=== PATIENT | male | born 1940 | race Caucasian/White ===

== ENCOUNTER 2020-03-13 19:03 | Emergency (ER) | payer OTHER, MEDICARE, MEDICAID ==
[~2020-03-13] VITALS: Ht 180.3 cm; Wt 100.0 kg
[~2020-03-13 19:03] MED LIST: ALBU6.7H9 INH; AMIO200T61 PO; DILT120T3 PO; FURO-150 PO; INSU500I SQ; LEVO75TA7 PO; METF1000 PO; METO100T7 PO; POTA10CA44 PO; RIVA15TA PO; SACU1TAB7 PO
[2020-03-13 19:26] LABS: BASOPHILS # (AUTO) 0.1 X10'3 (0-0.2); BASOPHILS % (AUTO) 0.6 % (0-1); EOSINOPHILS # (AUTO) 0.1 X10'3 (0-0.9); EOSINOPHILS % (AUTO) 1.1 % (0-6); HEMATOCRIT 47.6 % (42.0-52.0); HEMOGLOBIN 15.9 g/dl (14.0-17.9); LYMPHOCYTES # (AUTO) 1.5 X10'3 (1.1-4.8); LYMPHOCYTES % (AUTO) 17.2 % (21-51); MEAN CORPUSCULAR HEMOGLOBIN 30.1 PG (27.0-31.0); MEAN CORPUSCULAR HGB CONC 33.4 g/dL (33.0-36.5); MEAN CORPUSCULAR VOLUME 90.2 FL (78-98); MONOCYTES # (AUTO) 0.7 X10'3 (0-0.9); MONOCYTES % (AUTO) 8.2 % (2-12); NEUTROPHILS # (AUTO) 6.4 X10'3 (1.8-7.7); NEUTROPHILS % (AUTO) 72.9 % (42-75); PLATELET COUNT 135 X10'3 (140-440); RED BLOOD COUNT 5.27 X10'6 (4.70-6.10); RED CELL DISTRIBUTION WIDTH 13.9 % (11.5-14.5); WHITE BLOOD COUNT 8.8 X10'3 (4.5-11.0)
[2020-03-13 19:44] LABS: ALANINE AMINOTRANSFERASE 22 U/L (12-78); ALBUMIN 3.4 G/DL (3.4-5.0); ALBUMIN/GLOBULIN RATIO 0.9 (1.1-1.5); ALKALINE PHOSPHATASE 64 IU/L (46-116); ANION GAP 11 (8-16); ASPARTATE AMINO TRANSFERASE 17 U/L (10-37); BILIRUBIN,TOTAL 0.5 MG/DL (0.1-1.0); BLOOD UREA NITROGEN 23 MG/DL (7-18); BUN/CREATININE RATIO 17.8 (5.4-32.0); CALCIUM 9.4 MG/DL (8.5-10.1); CHLORIDE 101 MMOL/L (99-107); CREATININE 1.29 MG/DL (0.60-1.10); GLUCOSE 224 MG/DL (70-104); POTASSIUM 4.2 MMOL/L (3.5-5.1); SODIUM 137 MMOL/L (135-145); TOTAL CARBON DIOXIDE 24.9 MMOL/L (24-32); eGFR 54 ML/MIN
[2020-03-13] MEDS ORDERED: diltiazem 5mg/ml 5ml inj. IV ONE ×2 (19:45→20:55)
[2020-03-13] MEDS ORDERED: diltiazem 30mg tablet PO ONE (19:45)
[2020-03-13 19:51] LABS: LIPASE < 50 U/L (73-393); TROPONIN I 0.05 NG/ML (0.0-0.05)
[2020-03-13] MEDS ORDERED: metoprolol tartrate 25mg tablet PO ONE (20:55)
[2020-03-13 21:00] LABS: CLARITY,URINE CLEAR (Clear); COLOR,URINE YELLOW (Yellow); GLUCOSE, URINE 250 mg/dl (Neg); KETONES,URINE NEGATIVE (Neg); LEUKOCYTE ESTERASE ,URINE NEGATIVE (Neg); NITRITES, URINE NEGATIVE (Neg); OCCULT BLOOD,URINE LARGE (Neg); PROTEIN,URINE 100 mg/dl (Neg); UROBILINOGEN,URINE 0.2 E.U/dL (0.2-1.0)
[2020-03-13 21:01] LABS: UA COLLECTION TYPE VOIDED
[2020-03-13 21:05] LABS: BACTERIA,URINE NONE SEEN /HPF (Neg); RBC,URINE 20-50 /HPF (0-2); SQUAMOUS EPITHELIAL CELL,UR FEW /LPF (FEW); WBC,URINE NONE SEEN /HPF (0-4)
[2020-03-13] MEDS ORDERED: metoprolol tartrate 1mg/ml inj IV ONE (21:30)
[2020-03-13] MEDS ORDERED: HYDR-4353 PO (21:50)
[2020-03-13 21:59] VITALS: BP 130/81
== END 2020-03-13 22:02 | disposition home or self-care (01) ==
LOC: ER 19:03
DX: N23 Unspecified renal colic (principal); R31.9 Hematuria, unspecified; I48.91 Unspecified atrial fibrillation; I25.10 Atherosclerotic heart disease of native coronary artery without angina pectoris; I10 Essential (primary) hypertension; I25.2 Old myocardial infarction; R06.89 Other abnormalities of breathing; Z90.49 Acquired absence of other specified parts of digestive tract; Z98.890 Other specified postprocedural states; Z88.5 Allergy status to narcotic agent; Z88.8 Allergy status to other drugs, medicaments and biological substances; Z79.4 Long term (current) use of insulin; Z79.899 Other long term (current) drug therapy
CPT/HCPCS: 36415; 71045; 74176; 80053; 81001; 83690; 83880; 84484; 85025; 93005; 96374; 96375; 96376; 99285; J3490

== ENCOUNTER 2021-02-28 12:19 | Inpatient (IN) | payer OTHER, MEDICARE, MEDICAID ==
[~2021-02-28] VITALS: Ht 182.9 cm; Wt 110.0 kg
[2021-02-28 12:52] LABS: BASOPHILS % (AUTO) 0.4 % (0-1); EOSINOPHILS # (AUTO) 0.2 X10'3 (0-0.9); EOSINOPHILS % (AUTO) 1.9 % (0-6); HEMATOCRIT 48.2 % (42.0-52.0); LYMPHOCYTES # (AUTO) 1.5 X10'3 (1.1-4.8); LYMPHOCYTES % (AUTO) 16.5 % (21-51); MEAN CORPUSCULAR HEMOGLOBIN 29.9 PG (27.0-31.0); MEAN CORPUSCULAR HGB CONC 33.3 g/dL (33.0-36.5); MEAN CORPUSCULAR VOLUME 89.8 FL (78-98); MEAN PLATELET VOLUME 9.9 FL (7.4-10.4); MONOCYTES # (AUTO) 0.7 X10'3 (0-0.9); MONOCYTES % (AUTO) 7.4 % (2-12); NEUTROPHILS # (AUTO) 6.6 X10'3 (1.8-7.7); NEUTROPHILS % (AUTO) 73.8 % (42-75); PLATELET COUNT 131 X10'3 (140-440); RED BLOOD COUNT 5.36 X10'6 (4.70-6.10); RED CELL DISTRIBUTION WIDTH 14.4 % (11.5-14.5); WHITE BLOOD COUNT 8.9 X10'3 (4.5-11.0)
[2021-02-28 13:32] LABS: ALANINE AMINOTRANSFERASE 15 U/L (12-78); ALBUMIN 3.3 G/DL (3.4-5.0); ALBUMIN/GLOBULIN RATIO 0.9 (1.1-1.5); ALKALINE PHOSPHATASE 46 IU/L (46-116); ANION GAP 12 (8-16); ASPARTATE AMINO TRANSFERASE 20 U/L (10-37); BILIRUBIN,TOTAL 0.7 MG/DL (0.1-1.0); BLOOD UREA NITROGEN 22 MG/DL (7-18); BUN/CREATININE RATIO 19.3 (5.4-32.0); CALCIUM 9.3 MG/DL (8.5-10.1); CHLORIDE 103 MMOL/L (99-107); CREATININE 1.14 MG/DL (0.60-1.10); GLUCOSE 160 MG/DL (70-104); POTASSIUM 3.9 MMOL/L (3.5-5.1); SODIUM 139 MMOL/L (135-145); TOTAL CARBON DIOXIDE 23.8 MMOL/L (24-32); TOTAL PROTEIN 7.1 G/DL (6.4-8.2); eGFR 62 ML/MIN
[2021-02-28] MEDS ORDERED: diltiazem 30mg tablet PO ONE (13:40)
[2021-02-28] MEDS ORDERED: diltiazem 5mg/ml 5ml inj. IV ONE (13:40)
[2021-02-28] MEDS ORDERED: magnesium 2GM in 50ml NS 50 ML IV ONE (13:45)
[2021-02-28] MEDS ORDERED: furosemide 10 MG/1 ML 10ml inj IV ONE (15:30)
[2021-02-28] MEDS ORDERED: METF-438 PO (17:10)
[2021-02-28] MEDS ORDERED: LAN0.125T PO (17:10)
[2021-02-28] MEDS ORDERED: METO200T49 PO (17:10)
[2021-02-28] MEDS ORDERED: SACU1TAB PO (17:10)
[2021-02-28] MEDS ORDERED: RIVA10TA PO (17:10)
[2021-02-28] MEDS ORDERED: FURO40TA4 PO (17:10)
[2021-02-28] MEDS ORDERED: ATOR40TA72 PO (17:10)
[2021-02-28] MEDS ORDERED: INSU100I25 SQ (17:10)
[2021-02-28] MEDS ORDERED: LEVO112T5 PO (17:10)
[2021-02-28] MEDS ORDERED: MESSAGE TO PHARMACY PO ONE (17:25)
[2021-02-28] MEDS ORDERED: mag hydrox/Alum hydrox/simeth 30ml oral suspension PO PRN (17:25)
[2021-02-28] MEDS ORDERED: ondansetron/PF 4mg/2ml inj IV PRN (17:25)
[2021-02-28] MEDS ORDERED: magnesium 4gm in 100ml NS 100 ML IV PRN (17:25)
[2021-02-28] MEDS ORDERED: diphenhydrAMINE 25mg capsule PO PRN (17:25)
[2021-02-28] MEDS ORDERED: magnesium Cl slow-release 64mg tablet PO PRN (17:25)
[2021-02-28] MEDS ORDERED: magnesium 2GM in 50ml NS 50 ML IV PRN (17:25)
[2021-02-28] MEDS ORDERED: bisacodyl 10mg suppository rectal RC PRN (17:25)
[2021-02-28] MEDS ORDERED: acetaminophen 650mg rectal suppository RC PRN (17:25)
[2021-02-28] MEDS ORDERED: dextrose 50%-water 50ml dispensing syringe IV PRN ×2 (17:25)
[2021-02-28] MEDS ORDERED: dextrose ORAL solution 15 GM/59 ML bottle PO PRN ×2 (17:25)
[2021-02-28] MEDS ORDERED: acetaminophen 325mg tablet PO PRN ×2 (17:25)
[2021-02-28] MEDS ORDERED: magnesium hydroxide 30ml (MOM) UD suspension PO PRN (17:25)
[2021-02-28] MEDS ORDERED: potassium CL 10mEq/100ml bag 100 ML IV PRN (17:25)
[2021-02-28] MEDS ORDERED: potassium Cl 20 mEq SR tablet PO PRN ×2 (17:25)
[2021-02-28] MEDS ORDERED: glucagon, human recombinant 1mg kit SUBCUT PRN (17:25)
[2021-02-28 18:00] LABS: HEMOGLOBIN A1C 8.7 % (4.5-6.2)
[2021-02-28 18:40] LABS: CLARITY,URINE CLEAR (Clear); COLOR,URINE YELLOW (Yellow); GLUCOSE, URINE NEGATIVE (Neg); KETONES,URINE NEGATIVE (Neg); LEUKOCYTE ESTERASE ,URINE NEGATIVE (Neg); NITRITES, URINE NEGATIVE (Neg); OCCULT BLOOD,URINE NEGATIVE (Neg); PH,URINE 6.5 (4.8-8.0); PROTEIN,URINE 100 mg/dl (Neg); UROBILINOGEN,URINE 0.2 E.U/dL (0.2-1.0)
[2021-02-28 18:42] LABS: UA COLLECTION TYPE URINAL
--- NOTE | 2021-02-28 18:44 | NUR ---
ASSISTING RN WITH PT CARE, DR LESTER AT BEDSIDE TO DISCUSS CODE STATUS, PT WISHES TO BE DNR AND TO "PASS PEACEFULLY", PT AGREED TO NO CHEST COMPRESSIONS OR INTUBATION
[2021-02-28 18:50] LABS: BACTERIA,URINE FEW /HPF (Neg); MUCUS STRANDS FEW /LPF (Neg); SQUAMOUS EPITHELIAL CELL,UR FEW /LPF (FEW)
[2021-02-28 18:51] LABS: CELLULAR CAST 0-4 /LPF (NEGATIVE)
[2021-02-28] MEDS ORDERED: FLU VACC QS2021-22(6MOS UP)/PF 60 MCG/0.5 ML SYRINGE IM ONE (19:00)
[2021-02-28] MEDS ORDERED: pneumococcal 23-VAL P-sac vacc 25 mcg/0.5ml vial IMVAC ONE (19:00)
[2021-02-28] MEDS ORDERED: heparin 25,000 UNIT/250ml bag 250 ML IV SCH (19:10)
[2021-02-28] MEDS ORDERED: heparin 10,000 units/1 ML INJ IV PRN (19:10)
[2021-02-28] MEDS ORDERED: heparin 10,000 units/1 ML INJ IV ONE ×2 (19:10→20:55)
[2021-02-28] MEDS ORDERED: iohexol 350MG/ML 100ml bottle IV ONE (19:16)
[2021-02-28] MEDS ORDERED: MESSAGE TO NURSING PO ONE (20:00)
[2021-02-28] MEDS: insulin glargine (Lantus) pen - multi-dose SQ SCH (21:00)
[2021-02-28] MEDS: furosemide 40mg/4ml inj IV SCH (21:22)
[2021-02-28] MEDS: CefTRIAXone/D5W-Rocephin 1gm 50 ML IV SCH (21:23)
[2021-02-28] MEDS: heparin 25,000 UNIT/250ml bag 250 ML IV SCH (21:35)
[2021-02-28] MEDS: normal saline 1000ml 1,000 ML IV SCH (21:44)
[2021-02-28] MEDS: K and/or MAG REPLACEMENT MC SCH (21:46)
[2021-02-28] MEDS: docusate sod 100mg capsule PO SCH (21:46)
[2021-02-28 22:00] VITALS: BP 139/93
--- NOTE | 2021-02-28 22:00 | NUR ---
Patient transfer from ER to PCU in a stable condition, vital signs stable oriented to room call light within reach bed in lower position will continue to monitor and report changes
[2021-03-01 02:00] VITALS: BP 127/88
[2021-03-01 06:00] VITALS: BP 121/82
[2021-03-01 06:41] LABS: BASOPHILS % (AUTO) 0.5 % (0-1); EOSINOPHILS # (AUTO) 0.2 X10'3 (0-0.9); EOSINOPHILS % (AUTO) 1.8 % (0-6); HEMATOCRIT 49.9 % (42.0-52.0); LYMPHOCYTES # (AUTO) 1.6 X10'3 (1.1-4.8); LYMPHOCYTES % (AUTO) 17.8 % (21-51); MEAN CORPUSCULAR HEMOGLOBIN 30.2 PG (27.0-31.0); MEAN CORPUSCULAR VOLUME 88.9 FL (78-98); MEAN PLATELET VOLUME 10.7 FL (7.4-10.4); MONOCYTES # (AUTO) 0.7 X10'3 (0-0.9); MONOCYTES % (AUTO) 8.1 % (2-12); NEUTROPHILS # (AUTO) 6.4 X10'3 (1.8-7.7); NEUTROPHILS % (AUTO) 71.8 % (42-75); PLATELET COUNT 136 X10'3 (140-440); RED BLOOD COUNT 5.61 X10'6 (4.70-6.10); RED CELL DISTRIBUTION WIDTH 14.4 % (11.5-14.5); WHITE BLOOD COUNT 8.9 X10'3 (4.5-11.0)
--- NOTE | 2021-03-01 06:50 | NUR ---
Problems reprioritized. Patient report given, questions answered & plan of care reviewed with Chari VILLAVICENCIO .
[2021-03-01 06:57] LABS: ALANINE AMINOTRANSFERASE 30 U/L (12-78); ALBUMIN 3.6 G/DL (3.4-5.0); ALBUMIN/GLOBULIN RATIO 0.9 (1.1-1.5); ALKALINE PHOSPHATASE 55 IU/L (46-116); ANION GAP 10 (8-16); ASPARTATE AMINO TRANSFERASE 24 U/L (10-37); BLOOD UREA NITROGEN 20 MG/DL (7-18); BUN/CREATININE RATIO 16.8 (5.4-32.0); CALCIUM 9.5 MG/DL (8.5-10.1); CHLORIDE 103 MMOL/L (99-107); CHOL/HDL RATIO 5.6 (0.00-4.99); CHOLESTEROL 237 MG/DL (0-200); CREATININE 1.19 MG/DL (0.60-1.10); GLUCOSE 188 MG/DL (70-104); HDL CHOLESTEROL 42 MG/DL (35-60); LDL CHOLESTEROL 171 MG/DL (50-100); MAGNESIUM 1.9 MG/DL (1.5-2.4); PHOSPHORUS 3.3 MG/DL (2.3-4.5); POTASSIUM 3.8 MMOL/L (3.5-5.1); SODIUM 140 MMOL/L (135-145); TOTAL CARBON DIOXIDE 27.2 MMOL/L (24-32); TOTAL PROTEIN 7.8 G/DL (6.4-8.2); TRIGLYCERIDES 96 MG/DL (20-135); eGFR 59 ML/MIN
[2021-03-01] MEDS: furosemide 40mg/4ml inj IV SCH ×2 (07:05→19:45)
[2021-03-01] MEDS: metoprolol succinate 25mg (24-HOUR) SR. Tablet PO SCH (07:06)
[2021-03-01] MEDS: docusate sod 100mg capsule PO SCH ×2 (07:06→19:46)
[2021-03-01] MEDS: digoxin 125mcg (0.125mg) tablet PO SCH (07:07)
[2021-03-01] MEDS: sacubitril/valsartan 24mg-26mg tablet PO SCH (07:07)
[2021-03-01] MEDS: atorvastatin 20mg tablet PO SCH (07:08)
[2021-03-01] MEDS ORDERED: rivaroxaban 10mg tablet PO SCH (08:00)
[2021-03-01] MEDS ORDERED: levoTHYROXINE 112mcg tablet PO SCH (08:00)
[2021-03-01] MEDS: K and/or MAG REPLACEMENT MC SCH ×2 (08:00→19:46)
--- NOTE | 2021-03-01 09:30 | NUR ---
Missing Rocephin Pharmacy paged in regards to missing rocephin. Chari [facility]
[2021-03-01] MEDS: heparin 10,000 units/1 ML INJ IV PRN (09:36)
[2021-03-01] MEDS: insulin Lispro (HumaLOG) vial - multi-dose SQ SCH ×2 (10:05→14:13)
[2021-03-01 11:00] VITALS: BP 131/84
[2021-03-01] MEDS ORDERED: aspirin 325mg tablet PO ONE (11:00)
[2021-03-01] MEDS: CefTRIAXone/D5W-Rocephin 1gm 50 ML IV SCH (11:16)
[2021-03-01 15:00] VITALS: BP 99/73
[2021-03-01 15:47] LABS: APTT 51 SECONDS (22-32)
[2021-03-01] MEDS: heparin 25,000 UNIT/250ml bag 250 ML IV SCH (17:21)
--- NOTE | 2021-03-01 17:28 | NUR ---
DM Consult: Pt hx T2DM A1C 8.7% and CHF EF 25% per EMR. Pt seen by RD for written/verbal DM ed w/ RD contact information provided. Pt reports checks Glu regularly admits typically higher 180's-200's and takes metformin BID and Levemir BID per Rx. Pt reports does not eat red meats; dietary notified of preferences. RD encouraged pt to contact dietitian's office if further questions/concerns. Addendum: 03/01/21 at [address] Amended: Links added.
[2021-03-01 18:00] VITALS: BP 118/62
--- NOTE | 2021-03-01 18:33 | NUR ---
Problems reprioritized. Patient report given to Ally VILLAVICENCIO, questions answered & plan of care reviewed with Ally VILLAVICENCIO. Pt. safe and stable at the time of change of shift.
[2021-03-01] MEDS: lactobacillus rhamnosus 10,000 MMU CELLS/CAPSULE PO SCH (19:45)
[2021-03-01] MEDS: insulin glargine (Lantus) pen - multi-dose SQ SCH (20:29)
[2021-03-01 21:35] LABS: APTT 42 SECONDS (22-32)
[2021-03-01 22:00] VITALS: BP 108/73
[2021-03-02] MEDS: heparin 10,000 units/1 ML INJ IV PRN (01:19)
[2021-03-02 02:00] VITALS: BP 136/82
[2021-03-02 06:00] VITALS: BP 127/77
--- NOTE | 2021-03-02 06:23 | NUR ---
Problems reprioritized. Patient report given, questions answered & plan of care reviewed with Chari VILLAVICENCIO .
--- NOTE | 2021-03-02 06:24 | NUR ---
Patient in room PCU 3015. I have received report from Maryanne VILLAVICENCIO and had the opportunity to ask questions and assume patient care.
[2021-03-02 07:02] LABS: BASOPHILS # (AUTO) 0.1 X10'3 (0-0.2); BASOPHILS % (AUTO) 1.1 % (0-1); EOSINOPHILS # (AUTO) 0.2 X10'3 (0-0.9); EOSINOPHILS % (AUTO) 2.5 % (0-6); HEMOGLOBIN 16.9 g/dl (14.0-17.9); LYMPHOCYTES # (AUTO) 1.8 X10'3 (1.1-4.8); LYMPHOCYTES % (AUTO) 20.7 % (21-51); MEAN CORPUSCULAR HEMOGLOBIN 30.5 PG (27.0-31.0); MEAN CORPUSCULAR HGB CONC 34.4 g/dL (33.0-36.5); MEAN CORPUSCULAR VOLUME 88.7 FL (78-98); MEAN PLATELET VOLUME 10.6 FL (7.4-10.4); MONOCYTES # (AUTO) 0.7 X10'3 (0-0.9); MONOCYTES % (AUTO) 8.4 % (2-12); NEUTROPHILS # (AUTO) 5.9 X10'3 (1.8-7.7); NEUTROPHILS % (AUTO) 67.3 % (42-75); PLATELET COUNT 137 X10'3 (140-440); RED BLOOD COUNT 5.53 X10'6 (4.70-6.10); RED CELL DISTRIBUTION WIDTH 14.6 % (11.5-14.5); WHITE BLOOD COUNT 8.8 X10'3 (4.5-11.0)
[2021-03-02 07:06] LABS: APTT 61 SECONDS (22-32)
[2021-03-02 07:18] LABS: ALANINE AMINOTRANSFERASE 29 U/L (12-78); ALBUMIN 3.2 G/DL (3.4-5.0); ALBUMIN/GLOBULIN RATIO 0.8 (1.1-1.5); ALKALINE PHOSPHATASE 50 IU/L (46-116); ANION GAP 10 (8-16); ASPARTATE AMINO TRANSFERASE 31 U/L (10-37); BILIRUBIN,TOTAL 0.8 MG/DL (0.1-1.0); BLOOD UREA NITROGEN 29 MG/DL (7-18); CALCIUM 9.3 MG/DL (8.5-10.1); CHLORIDE 102 MMOL/L (99-107); CREATININE 1.32 MG/DL (0.60-1.10); GLUCOSE 230 MG/DL (70-104); PHOSPHORUS 3.7 MG/DL (2.3-4.5); POTASSIUM 3.8 MMOL/L (3.5-5.1); SODIUM 140 MMOL/L (135-145); TOTAL CARBON DIOXIDE 28.2 MMOL/L (24-32); TOTAL PROTEIN 7.1 G/DL (6.4-8.2); eGFR 52 ML/MIN
[2021-03-02] MEDS: K and/or MAG REPLACEMENT MC SCH ×2 (08:00→20:00)
[2021-03-02] MEDS: amiodarone 200mg tablet PO SCH ×2 (08:35→19:28)
[2021-03-02] MEDS: furosemide 40mg/4ml inj IV SCH (08:35)
[2021-03-02] MEDS: CefTRIAXone/D5W-Rocephin 1gm 50 ML IV SCH (08:35)
[2021-03-02] MEDS: metoprolol succinate 25mg (24-HOUR) SR. Tablet PO SCH (08:36)
[2021-03-02] MEDS: sacubitril/valsartan 24mg-26mg tablet PO SCH (08:37)
[2021-03-02] MEDS: atorvastatin 20mg tablet PO SCH (08:37)
[2021-03-02] MEDS: lactobacillus rhamnosus 10,000 MMU CELLS/CAPSULE PO SCH ×2 (08:38→19:27)
[2021-03-02] MEDS: digoxin 125mcg (0.125mg) tablet PO SCH (08:38)
[2021-03-02] MEDS: aspirin 81mg, enteric-coated 1 TAB TABLET.DR PO SCH (08:39)
[2021-03-02] MEDS: levoTHYROXINE 125mcg tablet PO SCH (08:39)
[2021-03-02] MEDS: docusate sod 100mg capsule PO SCH ×2 (08:42→19:27)
[2021-03-02 08:53] LABS: LARGE PLATELETS FEW; PLATELET ESTIMATE DECREASED
[2021-03-02] MEDS: insulin Lispro (HumaLOG) vial - multi-dose SQ SCH ×2 (10:21→14:13)
--- NOTE | 2021-03-02 11:18 | NUR ---
MRSA Nares Dr. Whaley Pt. in room 3167N Eric Oneill came back positive for MRSA in the nares. [facility]
[2021-03-02 11:30] VITALS: BP 122/66
[2021-03-02] MEDS ORDERED: ondansetron 4mg rapidly disintigrating tab PO PRN (14:35)
[2021-03-02 15:11] VITALS: BP 135/89
[2021-03-02] MEDS: heparin 25,000 UNIT/250ml bag 250 ML IV SCH (15:15)
[2021-03-02 16:31] LABS: APTT 50 SECONDS (22-32)
[2021-03-02] MEDS: normal saline 1000ml 1,000 ML IV SCH (16:35)
[2021-03-02] MEDS ORDERED: vancomycin/NS 1 GM ADD-VANTAGE 250 ML IV SCH (16:59)
[2021-03-02 18:00] VITALS: BP 123/89
--- NOTE | 2021-03-02 18:21 | NUR ---
Problems reprioritized. Patient report given to Ally VILLAVICENCIO, questions answered & plan of care reviewed with Ally VILLAVICENCIO.
[2021-03-02] MEDS: furosemide 20 MG/2 ML vial IV SCH (19:29)
[2021-03-02] MEDS: insulin glargine (Lantus) pen - multi-dose SQ SCH (20:43)
[2021-03-02 22:00] VITALS: BP 121/80
[2021-03-02 22:12] LABS: APTT 54 SECONDS (22-32)
[2021-03-03 02:00] VITALS: BP 134/86
[2021-03-03] MEDS: heparin 10,000 units/1 ML INJ IV PRN (03:33)
[2021-03-03 06:00] VITALS: BP 154/82
--- NOTE | 2021-03-03 06:07 | NUR ---
Problems reprioritized. Patient report given, questions answered & plan of care reviewed with Chari VILLAVICENCIO .
[2021-03-03 07:09] LABS: BASOPHILS # (AUTO) 0.1 X10'3 (0-0.2); BASOPHILS % (AUTO) 0.6 % (0-1); EOSINOPHILS # (AUTO) 0.4 X10'3 (0-0.9); EOSINOPHILS % (AUTO) 3.8 % (0-6); HEMATOCRIT 49.6 % (42.0-52.0); HEMOGLOBIN 17.1 g/dl (14.0-17.9); LYMPHOCYTES # (AUTO) 2.4 X10'3 (1.1-4.8); LYMPHOCYTES % (AUTO) 25.8 % (21-51); MEAN CORPUSCULAR HEMOGLOBIN 30.3 PG (27.0-31.0); MEAN CORPUSCULAR HGB CONC 34.5 g/dL (33.0-36.5); MEAN CORPUSCULAR VOLUME 87.8 FL (78-98); MEAN PLATELET VOLUME 10.7 FL (7.4-10.4); MONOCYTES # (AUTO) 0.7 X10'3 (0-0.9); NEUTROPHILS # (AUTO) 5.8 X10'3 (1.8-7.7); NEUTROPHILS % (AUTO) 61.8 % (42-75); PLATELET COUNT 128 X10'3 (140-440); RED BLOOD COUNT 5.65 X10'6 (4.70-6.10); RED CELL DISTRIBUTION WIDTH 14.3 % (11.5-14.5); WHITE BLOOD COUNT 9.3 X10'3 (4.5-11.0)
[2021-03-03 07:17] LABS: ALANINE AMINOTRANSFERASE 29 U/L (12-78); ALBUMIN 3.1 G/DL (3.4-5.0); ALBUMIN/GLOBULIN RATIO 0.8 (1.1-1.5); ALKALINE PHOSPHATASE 47 IU/L (46-116); ANION GAP 16 (8-16); ASPARTATE AMINO TRANSFERASE 33 U/L (10-37); BILIRUBIN,TOTAL 0.9 MG/DL (0.1-1.0); BLOOD UREA NITROGEN 34 MG/DL (7-18); BUN/CREATININE RATIO 28.1 (5.4-32.0); CALCIUM 9.1 MG/DL (8.5-10.1); CHLORIDE 100 MMOL/L (99-107); CREATININE 1.21 MG/DL (0.60-1.10); GLUCOSE 184 MG/DL (70-104); PHOSPHORUS 4.5 MG/DL (2.3-4.5); POTASSIUM 3.5 MMOL/L (3.5-5.1); SODIUM 139 MMOL/L (135-145); TOTAL CARBON DIOXIDE 23.5 MMOL/L (24-32); TOTAL PROTEIN 6.8 G/DL (6.4-8.2); eGFR 58 ML/MIN
[2021-03-03 07:32] LABS: APTT 124 SECONDS (22-32)
--- NOTE | 2021-03-03 07:45 | NUR ---
Critical value promotional table spacer PAGER ID: [phone] MESSAGE: Dr. Whaley room 3[address]B Eric Oneill PTT [id number]; Heparin held and will redraw in two hours per protocol. Chari [facility]
[2021-03-03] MEDS: metoprolol succinate 25mg (24-HOUR) SR. Tablet PO SCH (07:57)
[2021-03-03] MEDS: furosemide 20 MG/2 ML vial IV SCH (07:57)
[2021-03-03] MEDS: sacubitril/valsartan 24mg-26mg tablet PO SCH (07:57)
[2021-03-03] MEDS: levoTHYROXINE 125mcg tablet PO SCH (07:58)
[2021-03-03] MEDS: aspirin 81mg, enteric-coated 1 TAB TABLET.DR PO SCH (07:58)
[2021-03-03] MEDS: atorvastatin 20mg tablet PO SCH (07:58)
[2021-03-03] MEDS: lactobacillus rhamnosus 10,000 MMU CELLS/CAPSULE PO SCH (07:58)
[2021-03-03] MEDS: digoxin 125mcg (0.125mg) tablet PO SCH (07:59)
[2021-03-03] MEDS: K and/or MAG REPLACEMENT MC SCH (08:00)
[2021-03-03] MEDS: docusate sod 100mg capsule PO SCH (08:01)
[2021-03-03] MEDS: amiodarone 200mg tablet PO SCH (08:01)
[2021-03-03 09:33] LABS: LARGE PLATELETS FEW; PLATELET ESTIMATE DECREASED
[2021-03-03] MEDS: insulin Lispro (HumaLOG) vial - multi-dose SQ SCH (10:46)
[2021-03-03] MEDS ORDERED: CEFD300C3 PO (11:37)
[2021-03-03] MEDS ORDERED: RIVA20TA PO (11:37)
[2021-03-03] MEDS ORDERED: ASPI-1071 PO (11:37)
[2021-03-03] MEDS ORDERED: LACT1CAP26 PO (11:37)
[2021-03-03] MEDS ORDERED: LEVO125T8 PO (11:37)
[2021-03-03] MEDS ORDERED: AMIO200T67 PO (11:37)
[2021-03-03 11:45] LABS: APTT 30 SECONDS (22-32)
[2021-03-03] MEDS ORDERED: vancomycin/NS 1 GM ADD-VANTAGE 250 ML IV SCH (12:00)
--- NOTE | 2021-03-03 13:25 | NUR ---
Pt. received discharge instructions with no further questions; Pt. IV removed with catheter intact; Pt. tele box cleaned and returned; Per Dr. Whaley patient ready for discharge.
[2021-03-04] MEDS ORDERED: VANCOMYCIN LEVEL IV ONE (11:30)
== END 2021-03-03 13:25 | disposition home or self-care (01) | DRG 291 ==
LOC: ER 12:19 → ED HOLD 17:30 → PCU 3S 22:30
PROVIDERS: ADMIT Family Medicine; ATTEND Family Medicine
PROC: 3E0234Z Introduction of Serum, Toxoid and Vaccine into Muscle, Percutaneous Approach (ICD-10-PCS; principal; 2021-02-28)
PROC: B32T1ZZ Computerized Tomography (CT Scan) of Left Pulmonary Artery using Low Osmolar Contrast (ICD-10-PCS; 2021-02-28)
PROC: B3201ZZ Computerized Tomography (CT Scan) of Thoracic Aorta using Low Osmolar Contrast (ICD-10-PCS; 2021-02-28)
PROC: B32S1ZZ Computerized Tomography (CT Scan) of Right Pulmonary Artery using Low Osmolar Contrast (ICD-10-PCS; 2021-02-28)
DX: I11.0 Hypertensive heart disease with heart failure (principal); I50.23 Acute on chronic systolic (congestive) heart failure; I24.8 Other forms of acute ischemic heart disease; I48.91 Unspecified atrial fibrillation; B95.62 Methicillin resistant Staphylococcus aureus infection as the cause of diseases classified elsewhere; Z66 Do not resuscitate; I42.9 Cardiomyopathy, unspecified; E03.9 Hypothyroidism, unspecified; E11.9 Type 2 diabetes mellitus without complications; I25.10 Atherosclerotic heart disease of native coronary artery without angina pectoris; Z20.822 Contact with and (suspected) exposure to COVID-19; Z60.2 Problems related to living alone; Z79.01 Long term (current) use of anticoagulants; Z79.899 Other long term (current) drug therapy; I25.2 Old myocardial infarction; Z80.3 Family history of malignant neoplasm of breast; Z82.49 Family history of ischemic heart disease and other diseases of the circulatory system; Z87.891 Personal history of nicotine dependence; Z88.8 Allergy status to other drugs, medicaments and biological substances; Z90.49 Acquired absence of other specified parts of digestive tract; Z95.5 Presence of coronary angioplasty implant and graft; Z95.810 Presence of automatic (implantable) cardiac defibrillator; Z23 Encounter for immunization
CPT/HCPCS: 36415; 71045; 71275; 80053; 80061; 81001; 82948; 83036; 83735; 83880; 84100; 84443; 84484; 85008; 85025; 85379; 85730; 87081; 87088; 87635; 90732; 93005; 93306; 96365; 96375; 97161; 97530; 99285; G0378; J0696; J1644; J1815; J1940; J3370; J3475; J3490; J7030; Q9967

== ENCOUNTER 2022-11-16 11:02 | Emergency (ER) | payer MEDICARE, MEDICAID ==
[~2022-11-16] VITALS: Ht 193 cm; Wt 81.8 kg
[~2022-11-16 11:02] MED LIST changes: -ALBU6.7H9 INH; -AMIO200T61 PO; +ATOR40TA72 PO; +CLOP-32 PO; -DILT120T3 PO; +EMPA10TA PO; +FLUT1BLS16 INH; -FURO-150 PO; +FURO40TA4 PO; +INSU100I31 SQ; -INSU500I SQ; +LAN0.125T PO; +LEVO112T72 PO; -LEVO75TA7 PO; +MELA10CA2 PO; +METF-438 PO; -METF1000 PO; -METO100T7 PO; +METO200T49 PO; +NITR0.4T48 SL; +OXYGEN NASALCANN; -POTA10CA44 PO; -RIVA15TA PO; +RIVA20TA PO; +SACU1TAB PO; -SACU1TAB7 PO; +[UNRECOGNIZED DRUG - REMARK] PO
[2022-11-16 11:09] VITALS: TEMP 98.6
[2022-11-16] MEDS ORDERED: iohexol 350MG/ML 100ml bottle IV ONE ×2 (11:14→13:54)
--- NOTE | 2022-11-16 12:05 | NUR ---
RN ATTEMPTED TO CALL #'S PROVIDED BY EMS FOR PT CONTACTS TO GET HEALTH INFO. PER PT AGREED THAT ALL HEALTH INFO MAY BE SHARED WITH THE HOME HEALTH RN ARMINDA [phone] AND BROTHER VIBHA [phone].
[2022-11-16 12:21] LABS: BASOPHILS # (AUTO) 0.1 X10'3 (0-0.2); BASOPHILS % (AUTO) 0.6 % (0-1); EOSINOPHILS # (AUTO) 0.1 X10'3 (0-0.9); EOSINOPHILS % (AUTO) 0.6 % (0-6); HEMATOCRIT 50.1 % (42.0-52.0); HEMOGLOBIN 16.3 g/dl (14.0-17.9); LYMPHOCYTES # (AUTO) 0.8 X10'3 (1.1-4.8); LYMPHOCYTES % (AUTO) 8.6 % (21-51); MEAN CORPUSCULAR HEMOGLOBIN 29.7 PG (27.0-31.0); MEAN CORPUSCULAR HGB CONC 32.5 g/dL (33.0-36.5); MEAN CORPUSCULAR VOLUME 91.3 FL (78-98); MEAN PLATELET VOLUME 10.5 FL (7.4-10.4); MONOCYTES # (AUTO) 0.5 X10'3 (0-0.9); MONOCYTES % (AUTO) 5.5 % (2-12); NEUTROPHILS # (AUTO) 8.1 X10'3 (1.8-7.7); NEUTROPHILS % (AUTO) 84.7 % (42-75); PLATELET COUNT 144 X10'3 (140-440); RED BLOOD COUNT 5.48 X10'6 (4.70-6.10); RED CELL DISTRIBUTION WIDTH 16.6 % (11.5-14.5); WHITE BLOOD COUNT 9.6 X10'3 (4.5-11.0)
[2022-11-16 12:32] LABS: APTT 28 SECONDS (22-32); INR 1.1 INR; PROTHROMBIN TIME 11.3 SECONDS (9.0-12.0)
[2022-11-16 12:38] LABS: ALANINE AMINOTRANSFERASE 52 U/L (12-78); ALBUMIN 3.4 G/DL (3.4-5.0); ALBUMIN/GLOBULIN RATIO 0.9 (1.1-1.5); ALKALINE PHOSPHATASE 99 IU/L (46-116); ANION GAP 11 (8-16); ASPARTATE AMINO TRANSFERASE 21 U/L (10-37); BILIRUBIN,TOTAL 1.5 MG/DL (0.1-1.0); BLOOD UREA NITROGEN 21 MG/DL (7-18); BUN/CREATININE RATIO 20.8 (10.0-20.0); CHLORIDE 102 MMOL/L (99-107); CREATININE 1.01 MG/DL (0.60-1.10); GLUCOSE 171 MG/DL (70-104); POTASSIUM 4.3 MMOL/L (3.5-5.1); SODIUM 141 MMOL/L (135-145); TOTAL CARBON DIOXIDE 28.5 MMOL/L (24-32); TOTAL PROTEIN 7.3 G/DL (6.4-8.2); eCRCL 68 ML/MIN; eGFR 71 ML/MIN
[2022-11-16 12:48] LABS: CREATINE KINASE 24 U/L (39-308); CREATINE KINASE MB 1.3 ng/ml (0.3-3.6)
--- NOTE | 2022-11-16 12:53 | NUR ---
RN COULD PERFORM LIMITED [facility] STROKE SCALE D/T PT APHASIC.
--- NOTE | 2022-11-16 14:10 | NUR ---
RN OBTAINED 20G RAC AND CALLED CT TO INFORM THEM. THEY WILL COME GET PT NOW.
[2022-11-16 16:39] VITALS: BP 129/90; PULSE 101; RESP 23; O2SAT 99
--- NOTE | 2022-11-16 16:51 | NUR ---
SBAR REPORT CALLED TO CLAUDIA VILLAVICENCIO AT [facility]. REACH WILL TRANSPORT PT BY HELICOPTER AND SHOULD ARRIVE AROUND [phone].
--- NOTE | 2022-11-16 17:16 | NUR ---
PT LEAVING ED WITH REACH TO BE TRANSFERRED TO [facility] AT THIS TIME. SBAR REPORT GIVEN TO FLIGHT MAYE RUELAS
== END 2022-11-16 17:35 ==
LOC: ER 11:03
DX: I63.9 Cerebral infarction, unspecified (principal); I10 Essential (primary) hypertension; Z88.8 Allergy status to other drugs, medicaments and biological substances; Z88.5 Allergy status to narcotic agent; Z79.899 Other long term (current) drug therapy; Z79.84 Long term (current) use of oral hypoglycemic drugs; Z98.890 Other specified postprocedural states
CPT/HCPCS: 70450; 70496; 70498; 71045; 80053; 82550; 82553; 82948; 84484; 85025; 85610; 85730; 93005; 99291; 99292; J3490; Q9967